=== PATIENT | male | born 1990 | race African-American/Black ===

== ENCOUNTER 2016-09-01 13:40 | Emergency (ER) | payer SELFPAY ==
[~2016-09-01] VITALS: Ht 175.3 cm; Wt 80.0 kg
[2016-09-01 13:52] VITALS: BP 153/90
== END 2016-09-01 17:40 | disposition home or self-care (01) ==
LOC: ER 14:07
DX: S01.01XA Laceration without foreign body of scalp, initial encounter (principal); S09.90XA Unspecified injury of head, initial encounter; F17.200 Nicotine dependence, unspecified, uncomplicated; W22.8XXA Striking against or struck by other objects, initial encounter; Y93.89 Activity, other specified; Y92.89 Other specified places as the place of occurrence of the external cause; Y99.8 Other external cause status
CPT/HCPCS: 12001; 99283; Z7610

== ENCOUNTER 2016-09-08 10:58 | Emergency (ER) | payer SELFPAY ==
[~2016-09-08] VITALS: Ht 175.3 cm; Wt 81.0 kg
[2016-09-08 12:00] VITALS: BP 132/72
== END 2016-09-08 14:58 | disposition home or self-care (01) ==
LOC: ER 14:55
DX: Z48.02 Encounter for removal of sutures (principal); F17.200 Nicotine dependence, unspecified, uncomplicated
CPT/HCPCS: 99281; Z7610